=== PATIENT | male | born 1945 ===

== ENCOUNTER 2019-05-24 16:22 | Emergency (ER) | payer MEDICARE, BC, MEDICAID, SELFPAY ==
[2019-05-24] VITALS (8 sets, daily range): BP systolic 100–124; BP diastolic 59–88; PULSE 70–91; RESP 18–30; TEMP 37.1; O2SAT 94–99; BMI 23.7
--- NOTE | 2019-05-24 16:29 | ED_ITS ---
Entered by Karen Holly, acting as scribe for Documented by User: Sunday Hanks DO 05/24/19 16:35 HPI - Altered Mental Status General: Chief Complaint: Altered Mental Status Stated Complaint: DECREASED MENTAL STATUS Time Seen by Provider: 05/24/19 16:28 History of Present Illness: HPI narrative: 74 yo male presents with altered mental status. Pt is non verbal at this time. Pt is a assisted resident. Pt fell this morning. Pt is having shortness of breath, his lips are swollen. Pt will follow some commands. Pt doesn't normally wear oxygen but is requiring it at this time. MD complaint: altered mental status Onset (ago): hour(s) Timing confirmed by: other (assisted) Severity: moderate Consistency of symptoms: Getting Worse Review of Systems General: Reports: ROS unobtainable due to mental status PFSH ED PFSH: Statuses (acute, chronic, etc) shown below reflect problem list status as previously entered and may not be historically accurate Medical History Dementia (Acute) Gastroesophageal reflux disease (Acute) Subconjunctival hemorrhage (Acute) Social History Smoking and tobacco status: unknown if ever smoked Physical Exam Const: COMMON NORMALS: apparent distress, negative for oriented x3 and negative for alert EXAM LIMITATIONS: altered mental status GENERAL APPEARANCE: cooperative (pt followed some commands) ORIENTATION/CONSCIOUSNESS: Yes awake; not oriented to person, not oriented to place and not oriented to time Resp: EFFORT & INSPECTION: Yes tachypneic, Yes respiratory distress and Yes uses accessory muscles Cardio: COMMON NORMALS: regular rate RATE: regular rate RHYTHM: other (paced ) GI: INSPECTION: Yes normal to inspection Neuro: COMMON NORMALS: negative for oriented x3 SENSORIUM/ORIENTATION: No alert, No oriented to person, No oriented to place and No oriented to time Course Vital Signs: Vital signs: Vital Signs Temperature 98.7 F 05/24/19 16:24 Pulse Rate 78 05/24/19 22:00 Respiratory Rate 18 05/24/19 22:00 Blood Pressure 102/60 05/24/19 22:00 Pulse Oximetry 99 05/24/19 22:00 MDM - Altered Mental Status Lab Data: Labs: Lab Results 05/24/19 05/24/19 05/24/19 Range/Units 16:55 17:05 17:05 WBC 11.4 H (4.0-10.0) 10^3/ uL RBC 3.52 L (4.1-5.3) 10^6/u L Hgb 11.0 L (11.7-16.6) g/dL Hct 36.1 L (42.0-52.0) % MCV 102.6 H (80-94) fL MCH 31.3 (28.0-34.0) pg MCHC 30.5 (30.0-36.0) g/dL RDW 12.1 (12.1-15.1) % Plt Count 207 (130-400) 10^3/c mm MPV 10.7 H (7.4-10.4) fL Neut % (Auto) 88.2 % Lymph % (Auto) 3.5 % Turner % (Auto) 7.8 % Eos % (Auto) 0.0 % Baso % (Auto) 0.1 % Neut # (Auto) 10.1 H (1.8-7.7) 10^3/u L Lymph # (Auto) 0.4 L (0.8-4.8) 10^3/u L Turner # (Auto) 0.9 (0.2-0.9) 10^3/u L Eos # (Auto) 0.0 (0.0-0.8) 10^3/u L Baso # (Auto) 0.0 (0.0-0.1) 10^3/u L Nucleated RBC % (a uto) 0 % Nucleated RBCs # 0.0 /100WBC Sodium 147 H (136-145) mmol/L Potassium 3.5 (3.5-5.1) mmol/L Chloride 113 H (98-107) mmol/L Carbon Dioxide 22 (22-29) mmol/L Anion Gap 15.5 (5-19) BUN 32 H (8-23) mg/dL Creatinine 1.0 (0.7-1.2) mg/dL Glucose 114 H (74-106) mg/dL POC Glucose 113 (70-110) mg/dL Lactate (0.5-2.2) mmol/L Calcium 8.3 L (8.5-10.5) mg/dL Total Bilirubin 0.7 (0.15-1.2) mg/dL AST 14 (0-40) U/L ALT 13 (0-41) U/L Alkaline Phosphata se 68 (40-130) IU/L Troponin T Baselin e (0-15) ng/mL Troponin T 120 Min [place] (0-15) ng/mL Delta Troponin T (0-10) ABS# Total Protein 5.6 L (6.6-8.7) g/dL Albumin 2.4 L (3.5-5.2) g/dL Globulin 3.2 (1.3-4.6) g/dL Urine Color (Yellow) Urine Appearance (CLEAR) Urine pH (5-7) Ur Specific Gravit y (1.005-1.030) Urine Protein (Negative) Urine Glucose (UA) (Normal) Urine Ketones (Negative) Urine Occult Blood (Negative) Urine Nitrate (Negative) Urine Bilirubin (NEGATIVE) Urine Urobilinogen (Negative) mg/dL Ur Leukocyte Lisa ase (Negative) Urine RBC (0-2) /hpf Urine WBC (0-5) /hpf Ur Squamous Epith Cells (0-5) Urine Bacteria (NONE) Hyaline Casts Urine Mucus 05/24/19 05/24/19 05/24/19 Range/Units 17:05 17:05 17:17 WBC (4.0-10.0) 10^3/ uL RBC (4.1-5.3) 10^6/u L Hgb (11.7-16.6) g/dL Hct (42.0-52.0) % MCV (80-94) fL MCH (28.0-34.0) pg MCHC (30.0-36.0) g/dL RDW (12.1-15.1) % Plt Count (130-400) 10^3/c mm MPV (7.4-10.4) fL Neut % (Auto) % Lymph % (Auto) % Turner % (Auto) % Eos % (Auto) % Baso % (Auto) % Neut # (Auto) (1.8-7.7) 10^3/u L Lymph # (Auto) (0.8-4.8) 10^3/u L Turner # (Auto) (0.2-0.9) 10^3/u L Eos # (Auto) (0.0-0.8) 10^3/u L Baso # (Auto) (0.0-0.1) 10^3/u L Nucleated RBC % (a uto) % Nucleated RBCs # /100WBC Sodium (136-145) mmol/L Potassium (3.5-5.1) mmol/L Chloride (98-107) mmol/L Carbon Dioxide (22-29) mmol/L Anion Gap (5-19) BUN (8-23) mg/dL Creatinine (0.7-1.2) mg/dL Glucose (74-106) mg/dL POC Glucose (70-110) mg/dL Lactate 1.2 (0.5-2.2) mmol/L Calcium (8.5-10.5) mg/dL Total Bilirubin (0.15-1.2) mg/dL AST (0-40) U/L ALT (0-41) U/L Alkaline Phosphata se (40-130) IU/L Troponin T Baselin e 31 H (0-15) ng/mL Troponin T 120 Min [place] (0-15) ng/mL Delta Troponin T (0-10) ABS# Total Protein (6.6-8.7) g/dL Albumin (3.5-5.2) g/dL Globulin (1.3-4.6) g/dL Urine Color Yellow (Yellow) Urine Appearance Clear (CLEAR) Urine pH 5 (5-7) Ur Specific Gravit y 1.025 (1.005-1.030) Urine Protein Trace (Negative) Urine Glucose (UA) Norm (Normal) Urine Ketones Negative (Negative) Urine Occult Blood Neg (Negative) Urine Nitrate Negative (Negative) Urine Bilirubin Neg (NEGATIVE) Urine Urobilinogen 1 H (Negative) mg/dL Ur Leukocyte Lisa ase Negative (Negative) Urine RBC 0-4 H (0-2) /hpf Urine WBC 0-4 H (0-5) /hpf Ur Squamous Epith Cells 0-4 H (0-5) Urine Bacteria Trace (NONE) Hyaline Casts 0-4 H Urine Mucus 1+ 01/30/20 Range/Units 19:04 WBC (4.0-10.0) 10^3/ uL RBC (4.1-5.3) 10^6/u L Hgb (11.7-16.6) g/dL Hct (42.0-52.0) % MCV (80-94) fL MCH (28.0-34.0) pg MCHC (30.0-36.0) g/dL RDW (12.1-15.1) % Plt Count (130-400) 10^3/c mm MPV (7.4-10.4) fL Neut % (Auto) % Lymph % (Auto) % Turner % (Auto) % Eos % (Auto) % Baso % (Auto) % Neut # (Auto) (1.8-7.7) 10^3/u L Lymph # (Auto) (0.8-4.8) 10^3/u L Turner # (Auto) (0.2-0.9) 10^3/u L Eos # (Auto) (0.0-0.8) 10^3/u L Baso # (Auto) (0.0-0.1) 10^3/u L Nucleated RBC % (a uto) % Nucleated RBCs # /100WBC Sodium (136-145) mmol/L Potassium (3.5-5.1) mmol/L Chloride (98-107) mmol/L Carbon Dioxide (22-29) mmol/L Anion Gap (5-19) BUN (8-23) mg/dL Creatinine (0.7-1.2) mg/dL Glucose (74-106) mg/dL POC Glucose (70-110) mg/dL Lactate (0.5-2.2) mmol/L Calcium (8.5-10.5) mg/dL Total Bilirubin (0.15-1.2) mg/dL AST (0-40) U/L ALT (0-41) U/L Alkaline Phosphata se (40-130) IU/L Troponin T Baselin e (0-15) ng/mL Troponin T 120 Min [place] 31.21 H (0-15) ng/mL Delta Troponin T 0.21 (0-10) ABS# Total Protein (6.6-8.7) g/dL Albumin (3.5-5.2) g/dL Globulin (1.3-4.6) g/dL Urine Color (Yellow) Urine Appearance (CLEAR) Urine pH (5-7) Ur Specific Gravit y (1.005-1.030) Urine Protein (Negative) Urine Glucose (UA) (Normal) Urine Ketones (Negative) Urine Occult Blood (Negative) Urine Nitrate (Negative) Urine Bilirubin (NEGATIVE) Urine Urobilinogen (Negative) mg/dL Ur Leukocyte Lisa ase (Negative) Urine RBC (0-2) /hpf Urine WBC (0-5) /hpf Ur Squamous Epith Cells (0-5) Urine Bacteria (NONE) Hyaline Casts Urine Mucus Discharge Plan Discharge Patient Disposition: [facility] Clinical Impression: Dehydration with hypernatremia Altered mental status Qualifiers: Altered mental status type: unspecified Qualified Code(s): R41.82 - Altered mental status, unspecified Sinusitis Qualifiers: Sinusitis location: maxillary Chronicity: acute Recurrence: not specified as recurrent Qualified Code(s): J01.00 - Acute maxillary sinusitis, unspecified Condition: Stable Prescriptions: New Augmentin 875-125 mg tablet 1 tab PO BID 10 Days Qty: 20 RF: 0 No Action atorvastatin 80 mg Tablet 80 mg PO DAILY RF: 0 carvedilol 25 mg Tablet 25 mg PO BID RF: 0 Miralax 17 gram Powder In Packet 17 g PO DAILY RF: 0 Celexa 10 mg Tablet 10 mg PO DAILY RF: 0 Aricept 10 mg Tablet 10 mg PO BEDTIME RF: 0 Plavix 75 mg Tablet 75 mg PO DAILY RF: 0 spironolactone 25 mg Tablet 25 mg PO DAILY RF: 0 famotidine 20 mg Tablet 20 mg PO BID RF: 0 Milk of Magnesia 400 mg/5 mL Suspension 30 ml PO DAILY PRN (Reason: Constipation) RF: 0 meclizine 25 mg Tablet 25 mg PO Q6H PRN (Reason: Dizziness) RF: 0 erythromycin 5 mg/gram (0.5 %) Ointment 1 applic OPHTHALMIC (EYE) DAILY RF: 0 Colace 100 mg Capsule 100 mg PO BID RF: 0 aspirin 81 mg Tablet,Chewable 81 mg PO DAILY RF: 0 montelukast 10 mg Tablet 10 mg PO BEDTIME RF: 0 lisinopril 5 mg Tablet 2.5 mg PO DAILY RF: 0 Ventolin HFA 90 mcg/actuation Hfa Aerosol Inhaler 2 puff INHALATION Q6H PRN (Reason: Shortness Of Breath) RF: 0 loratadine 10 mg Tablet 10 mg PO DAILY RF: 0 memantine 5 mg Tablet 5 mg PO QAM RF: 0 Tylenol 325 mg Capsule 650 mg PO TID PRN (Reason: Pain) RF: 0 Discharge Orders: Discharge Order (Routine); Ordered 05/24/19 Ordered By: Gina Lopez Referrals: [facility] [Other] Zachariah Newsome MD, [facility] [place] [Emergency Department] - 1-3 days Discharge Diet: Advance as tolerated Discharge Activity: Increase activity as tolerated Patient Instructions: Dehydration - Adult, Sinusitis - Acute Activity Restrictions/Additional Instructions: Please return to the ER immediately for any of the signs or symptoms listed on your discharge instruction sheets, worsening/changing of your symptoms, you are not getting better as quickly as expected, or for ANY other cause or concerns. Discharge Date/Time: 05/24/19 22:43 Sign Out Sign Out Data: Patient Sign Out occurred on 05/24/19 at 18:09. Patient's care was discussed, and care was transferred from to Gina Lopez. Coding Level of Care Code ED Equipment Cleaner And Tester for Chg Fwd Exam Problem Focused Documented by User: Gina Lopez 05/24/19 23:28 HPI - Altered Mental Status General: Chief Complaint: Altered Mental Status Stated Complaint: DECREASED MENTAL STATUS Time Seen by Provider: 05/24/19 16:28 [facility] ED PFSH: Statuses (acute, chronic, etc) shown below reflect problem list status as previously entered and may not be historically accurate Medical History Dementia (Acute) Gastroesophageal reflux disease (Acute) Subconjunctival hemorrhage (Acute) Social History Smoking and tobacco status: unknown if ever smoked Course Vital Signs: Vital signs: Vital Signs Temperature 98.7 F 05/24/19 16:24 Pulse Rate 78 05/24/19 22:00 Respiratory Rate 18 05/24/19 22:00 Blood Pressure 102/60 05/24/19 22:00 Pulse Oximetry 99 05/24/19 22:00 MDM - Altered Mental Status MDM Narrative: Medical decision making narrative: Case inherited by me at change of shift from Dr. Sanchez. Please see his portion of this note for his history, physical exam and medical decision making notes. Patient to me will indicate where he hurts and pointed towards nose. CT of the head shows a sinusitis which is likely causing his discomfort. He does appear mildly dehydrated and hypernatremic but I have given him 2 L of normal saline here which should help with that. I reviewed the case with Dr. Newsome he is agreeable to letting the patient go back to the assisted on antibiotics for his sinusitis and they will have the assisted try to encourage hydration there. I did review the case with the patient's son Marlo Allan and he states he would like the patient to go back to the assisted as he thinks he will be more comfortable there. He does agree to have him return here to the ER if his symptoms change or worsen at all. I have informed the patient's family and Dr. Newsome is aware that something else may be going on but with the patient's ability to communicate at this time sinusitis with dehydration is my best working diagnosis but they do agree to return here if his symptoms worse. Lab Data: Labs: Lab Results 05/24/19 05/24/19 05/24/19 Range/Units 16:55 17:05 17:05 WBC 11.4 H (4.0-10.0) 10^3/ uL RBC 3.52 L (4.1-5.3) 10^6/u L Hgb 11.0 L (11.7-16.6) g/dL Hct 36.1 L (42.0-52.0) % MCV 102.6 H (80-94) fL MCH 31.3 (28.0-34.0) pg MCHC 30.5 (30.0-36.0) g/dL RDW 12.1 (12.1-15.1) % Plt Count 207 (130-400) 10^3/c mm MPV 10.7 H (7.4-10.4) fL Neut % (Auto) 88.2 % Lymph % (Auto) 3.5 % Turner % (Auto) 7.8 % Eos % (Auto) 0.0 % Baso % (Auto) 0.1 % Neut # (Auto) 10.1 H (1.8-7.7) 10^3/u L Lymph # (Auto) 0.4 L (0.8-4.8) 10^3/u L Turner # (Auto) 0.9 (0.2-0.9) 10^3/u L Eos # (Auto) 0.0 (0.0-0.8) 10^3/u L Baso # (Auto) 0.0 (0.0-0.1) 10^3/u L Nucleated RBC % (a uto) 0 % Nucleated RBCs # 0.0 /100WBC Sodium 147 H (136-145) mmol/L Potassium 3.5 (3.5-5.1) mmol/L Chloride 113 H (98-107) mmol/L Carbon Dioxide 22 (22-29) mmol/L Anion Gap 15.5 (5-19) BUN 32 H (8-23) mg/dL Creatinine 1.0 (0.7-1.2) mg/dL Glucose 114 H (74-106) mg/dL POC Glucose 113 (70-110) mg/dL Lactate (0.5-2.2) mmol/L Calcium 8.3 L (8.5-10.5) mg/dL Total Bilirubin 0.7 (0.15-1.2) mg/dL AST 14 (0-40) U/L ALT 13 (0-41) U/L Alkaline Phosphata se 68 (40-130) IU/L Troponin T Baselin e (0-15) ng/mL Troponin T 120 Min [place] (0-15) ng/mL Delta Troponin T (0-10) ABS# Total Protein 5.6 L (6.6-8.7) g/dL Albumin 2.4 L (3.5-5.2) g/dL Globulin 3.2 (1.3-4.6) g/dL Urine Color (Yellow) Urine Appearance (CLEAR) Urine pH (5-7) Ur Specific Gravit y (1.005-1.030) Urine Protein (Negative) Urine Glucose (UA) (Normal) Urine Ketones (Negative) Urine Occult Blood (Negative) Urine Nitrate (Negative) Urine Bilirubin (NEGATIVE) Urine Urobilinogen (Negative) mg/dL Ur Leukocyte Lisa ase (Negative) Urine RBC (0-2) /hpf Urine WBC (0-5) /hpf Ur Squamous Epith Cells (0-5) Urine Bacteria (NONE) Hyaline Casts Urine Mucus 05/24/19 05/24/19 05/24/19 Range/Units 17:05 17:05 17:17 WBC (4.0-10.0) 10^3/ uL RBC (4.1-5.3) 10^6/u L Hgb (11.7-16.6) g/dL Hct (42.0-52.0) % MCV (80-94) fL MCH (28.0-34.0) pg MCHC (30.0-36.0) g/dL RDW (12.1-15.1) % Plt Count (130-400) 10^3/c mm MPV (7.4-10.4) fL Neut % (Auto) % Lymph % (Auto) % Turner % (Auto) % Eos % (Auto) % Baso % (Auto) % Neut # (Auto) (1.8-7.7) 10^3/u L Lymph # (Auto) (0.8-4.8) 10^3/u L Turner # (Auto) (0.2-0.9) 10^3/u L Eos # (Auto) (0.0-0.8) 10^3/u L Baso # (Auto) (0.0-0.1) 10^3/u L Nucleated RBC % (a uto) % Nucleated RBCs # /100WBC Sodium (136-145) mmol/L Potassium (3.5-5.1) mmol/L Chloride (98-107) mmol/L Carbon Dioxide (22-29) mmol/L Anion Gap (5-19) BUN (8-23) mg/dL Creatinine (0.7-1.2) mg/dL Glucose (74-106) mg/dL POC Glucose (70-110) mg/dL Lactate 1.2 (0.5-2.2) mmol/L Calcium (8.5-10.5) mg/dL Total Bilirubin (0.15-1.2) mg/dL AST (0-40) U/L ALT (0-41) U/L Alkaline Phosphata se (40-130) IU/L Troponin T Baselin e 31 H (0-15) ng/mL Troponin T 120 Min [place] (0-15) ng/mL Delta Troponin T (0-10) ABS# Total Protein (6.6-8.7) g/dL Albumin (3.5-5.2) g/dL Globulin (1.3-4.6) g/dL Urine Color Yellow (Yellow) Urine Appearance Clear (CLEAR) Urine pH 5 (5-7) Ur Specific Gravit y 1.025 (1.005-1.030) Urine Protein Trace (Negative) Urine Glucose (UA) Norm (Normal) Urine Ketones Negative (Negative) Urine Occult Blood Neg (Negative) Urine Nitrate Negative (Negative) Urine Bilirubin Neg (NEGATIVE) Urine Urobilinogen 1 H (Negative) mg/dL Ur Leukocyte Lisa ase Negative (Negative) Urine RBC 0-4 H (0-2) /hpf Urine WBC 0-4 H (0-5) /hpf Ur Squamous Epith Cells 0-4 H (0-5) Urine Bacteria Trace (NONE) Hyaline Casts 0-4 H Urine Mucus 1+ 01/30/20 Range/Units 19:04 WBC (4.0-10.0) 10^3/ uL RBC (4.1-5.3) 10^6/u L Hgb (11.7-16.6) g/dL Hct (42.0-52.0) % MCV (80-94) fL MCH (28.0-34.0) pg MCHC (30.0-36.0) g/dL RDW (12.1-15.1) % Plt Count (130-400) 10^3/c mm MPV (7.4-10.4) fL Neut % (Auto) % Lymph % (Auto) % Turner % (Auto) % Eos % (Auto) % Baso % (Auto) % Neut # (Auto) (1.8-7.7) 10^3/u L Lymph # (Auto) (0.8-4.8) 10^3/u L Turner # (Auto) (0.2-0.9) 10^3/u L Eos # (Auto) (0.0-0.8) 10^3/u L Baso # (Auto) (0.0-0.1) 10^3/u L Nucleated RBC % (a uto) % Nucleated RBCs # /100WBC Sodium (136-145) mmol/L Potassium (3.5-5.1) mmol/L Chloride (98-107) mmol/L Carbon Dioxide (22-29) mmol/L Anion Gap (5-19) BUN (8-23) mg/dL Creatinine (0.7-1.2) mg/dL Glucose (74-106) mg/dL POC Glucose (70-110) mg/dL Lactate (0.5-2.2) mmol/L Calcium (8.5-10.5) mg/dL Total Bilirubin (0.15-1.2) mg/dL AST (0-40) U/L ALT (0-41) U/L Alkaline Phosphata se (40-130) IU/L Troponin T Baselin e (0-15) ng/mL Troponin T 120 Min [place] 31.21 H (0-15) ng/mL Delta Troponin T 0.21 (0-10) ABS# Total Protein (6.6-8.7) g/dL Albumin (3.5-5.2) g/dL Globulin (1.3-4.6) g/dL Urine Color (Yellow) Urine Appearance (CLEAR) Urine pH (5-7) Ur Specific Gravit y (1.005-1.030) Urine Protein (Negative) Urine Glucose (UA) (Normal) Urine Ketones (Negative) Urine Occult Blood (Negative) Urine Nitrate (Negative) Urine Bilirubin (NEGATIVE) Urine Urobilinogen (Negative) mg/dL Ur Leukocyte Lisa ase (Negative) Urine RBC (0-2) /hpf Urine WBC (0-5) /hpf Ur Squamous Epith Cells (0-5) Urine Bacteria (NONE) Hyaline Casts Urine Mucus Imaging Data^: CXR: My impression: No acute cardiopulmonary findings. CT Head: Radiologist's impression: [address] [place] [address] CT Scan Report Signed Patient: Michael Allan Unit #: [id number] : 1945 Age/Sex: 74 / M ADM Date: 05/24/19 Loc: ER Room/Bed: Attending Dr: Ordering Provider/Ordering MD: Sunday Hanks DO Date of Service: 05/24/19 Procedure(s): CT head wo con* [id number] Accession Number(s): [id number] Report Number: [id number] PROCEDURE INFORMATION: Exam: CT Head Without Contrast Exam date and time: 05/24/2019 5:17 PM Age: 74 years old Clinical indication: Altered mental status/memory loss; Patient HX: Dementia; Additional info: AMS TECHNIQUE: Imaging protocol: Computed tomography of the head without contrast. Total DLP: 846.13 mGy-cm Radiation optimization: All CT scans at this facility use at least one of these dose optimization techniques: automated exposure control; mA and/or kV adjustment per patient size (includes targeted exams where dose is matched to clinical indication); or iterative reconstruction. COMPARISON: CT head wo con* [id number] 03/20/2019 2:06 PM FINDINGS: Brain: No acute intracranial mass or bleed. Mild generalized cerebral atrophy. Ventricles: Normal. No ventriculomegaly. Bones/joints: Unremarkable. No acute fracture. Sinuses: Left maxillary sinus mucoperiosteal thickening with some dependent retained secretions/fluid. Mastoid air cells: Visualized mastoid air cells are well aerated. Soft tissues: Unremarkable. CT/CT head con* [id number] IMPRESSION: 1) mild generalized cerebral atrophy, unchanged. 2) acute to subacute left maxillary sinusitis. Radiation Dose CTDIVOL = (mGy): DLP = 846.13 (mGy-cm) Dictated By: Ric Holliday MD Signed By: Ric Holliday MD Signed Date/Time: 05/24/191824 DD/ 23 EKG Data^: EKG 1: Attestation: I personally reviewed and interpreted this EKG as follows: EKG interpretation date: 05/24/19 EKG interpretation time: 18:32 Interpretation: Atrial fibrillation with a ventricular rate of 77 beats a minute, frequent PVCs, baseline artifact, right bundle branch block, nonspecific ST-T wave changes. Discharge Plan Discharge Patient Disposition: [facility] Clinical Impression: Dehydration with hypernatremia Altered mental status Qualifiers: Altered mental status type: unspecified Qualified Code(s): R41.82 - Altered mental status, unspecified Sinusitis Qualifiers: Sinusitis location: maxillary Chronicity: acute Recurrence: not specified as recurrent Qualified Code(s): J01.00 - Acute maxillary sinusitis, unspecified Condition: Stable Prescriptions: New Augmentin 875-125 mg tablet 1 tab PO BID 10 Days Qty: 20 RF: 0 No Action atorvastatin 80 mg Tablet 80 mg PO DAILY RF: 0 carvedilol 25 mg Tablet 25 mg PO BID RF: 0 Miralax 17 gram Powder In Packet 17 g PO DAILY RF: 0 Celexa 10 mg Tablet 10 mg PO DAILY RF: 0 Aricept 10 mg Tablet 10 mg PO BEDTIME RF: 0 Plavix 75 mg Tablet 75 mg PO DAILY RF: 0 spironolactone 25 mg Tablet 25 mg PO DAILY RF: 0 famotidine 20 mg Tablet 20 mg PO BID RF: 0 Milk of Magnesia 400 mg/5 mL Suspension 30 ml PO DAILY PRN (Reason: Constipation) RF: 0 meclizine 25 mg Tablet 25 mg PO Q6H PRN (Reason: Dizziness) RF: 0 erythromycin 5 mg/gram (0.5 %) Ointment 1 applic OPHTHALMIC (EYE) DAILY RF: 0 Colace 100 mg Capsule 100 mg PO BID RF: 0 aspirin 81 mg Tablet,Chewable 81 mg PO DAILY RF: 0 montelukast 10 mg Tablet 10 mg PO BEDTIME RF: 0 lisinopril 5 mg Tablet 2.5 mg PO DAILY RF: 0 Ventolin HFA 90 mcg/actuation Hfa Aerosol Inhaler 2 puff INHALATION Q6H PRN (Reason: Shortness Of Breath) RF: 0 loratadine 10 mg Tablet 10 mg PO DAILY RF: 0 memantine 5 mg Tablet 5 mg PO QAM RF: 0 Tylenol 325 mg Capsule 650 mg PO TID PRN (Reason: Pain) RF: 0 Discharge Orders: Discharge Order (Routine); Ordered 05/24/19 Ordered By: Gina Lopez Referrals: [facility] [Other] Zachariah Newsome MD, [facility] [place] [Emergency Department] - 1-3 days Discharge Diet: Advance as tolerated Discharge Activity: Increase activity as tolerated Patient Instructions: Dehydration - Adult, Sinusitis - Acute Activity Restrictions/Additional Instructions: Please return to the ER immediately for any of the signs or symptoms listed on your discharge instruction sheets, worsening/changing of your symptoms, you are not getting better as quickly as expected, or for ANY other cause or concerns. Discharge Date/Time: 05/24/19 22:43 Sign Out Sign Out Data: Patient Sign Out occurred on 05/24/19 at 18:09. Patient's care was discussed, and care was transferred from to Gina Lopez. Coding Level of Care Code ED Equipment Cleaner And Tester for Natanael Fwd Exam Problem Focused
--- NOTE | 2019-05-24 16:36 | CTR_ITS ---
PROCEDURE INFORMATION: Exam: CT Head Without Contrast Exam date and time: 05/24/2019 5:17 PM Age: 74 years old Clinical indication: Altered mental status/memory loss; Patient HX: Dementia; Additional info: AMS TECHNIQUE: Imaging protocol: Computed tomography of the head without contrast. Total DLP: 846.13 mGy-cm Radiation optimization: All CT scans at this facility use at least one of these dose optimization techniques: automated exposure control; mA and/or kV adjustment per patient size (includes targeted exams where dose is matched to clinical indication); or iterative reconstruction. COMPARISON: CT head wo con* [id number] 03/20/2019 2:06 PM FINDINGS: Brain: No acute intracranial mass or bleed. Mild generalized cerebral atrophy. Ventricles: Normal. No ventriculomegaly. Bones/joints: Unremarkable. No acute fracture. Sinuses: Left maxillary sinus mucoperiosteal thickening with some dependent retained secretions/fluid. Mastoid air cells: Visualized mastoid air cells are well aerated. Soft tissues: Unremarkable. CT/CT head wo con* [id number] IMPRESSION: 1) mild generalized cerebral atrophy, unchanged. 2) acute to subacute left maxillary sinusitis. Radiation Dose CTDIVOL = (mGy): DLP = 846.13 (mGy-cm)
--- NOTE | 2019-05-24 16:36 | XR_ITS ---
WS: [id number] Portable AP upright chest, 05/24/2019 Clinical Data: AMS Comparison: Portable chest, 03/20/2019 Findings: No nodules, masses or effusions are seen. The heart is enlarged. The pulmonary vascularity is not increased. No pneumonia or pneumothorax is seen. Midline sternotomy sutures are present. There is a permanent pacemaker with the generator overlying the right upper chest. There is a monitor lead on the chest wall. The aortic arch and descending aorta are tortuous. XR/XR chest 1V portable [id number] Impression: 1. Atherosclerosis and permanent pacemaker. 2. Cardiomegaly.
[2019-05-24] MEDS: sodium chloride 0.9% 500 ML IV (16:45)
[2019-05-24 16:59] LABS: Glucose Point of Care 113 mg/dL (70-110)
[2019-05-24 17:24] LABS: Basophils % 0.1 %; Hematocrit 36.1 % (42.0-52.0); Lymphocytes # 0.4 10^3/uL (0.8-4.8); Lymphocytes % 3.5 %; Mean Corpuscular HGB Conc 30.5 g/dL (30.0-36.0); Mean Corpuscular Hemoglobin 31.3 pg (28.0-34.0); Mean Corpuscular Volume 102.6 fL (80-94); Mean Platelet Volume 10.7 fL (7.4-10.4); Monocytes # 0.9 10^3/uL (0.2-0.9); Monocytes % 7.8 %; Neutrophils # 10.1 10^3/uL (1.8-7.7); Neutrophils % 88.2 %; Nucleated Red Blood Cells % 0 %; Platelet Count 207 10^3/cmm (130-400); Red Blood Count 3.52 10^6/uL (4.1-5.3); Red Cell Distribution Width 12.1 % (12.1-15.1); White Blood Count 11.4 10^3/uL (4.0-10.0)
[2019-05-24 17:28] LABS: Add Urine Microscopic? YES; Bilirubin Urine Neg (NEGATIVE); Blood Urine Neg (Negative); Glucose Urine UA Norm (Normal); Ketones Urine Negative (Negative); Leukocyte Esterase Urine Negative (Negative); Nitrate Urine Negative (Negative); Protein Urine Trace (Negative); Specific Gravity, Urine 1.025 (1.005-1.030); Urine Appearance Clear (CLEAR); Urine Color Yellow (Yellow); Urobilinogen Urine 1 mg/dL (Negative); pH Urine 5 (5-7)
[2019-05-24 17:34] LABS: Add Urine Culture? No; Bacteria Urine TRACE; Hyaline Casts Urine 0-4; Mucus Urine 1+; RBC Urine 0-4 /hpf (0-2); Squamous Epithelial Cell Urine 0-4 (0-5); WBC Urine 0-4 /hpf (0-5)
[2019-05-24 17:38] LABS: Alanine Aminotransferase 13 U/L (0-41); Albumin Level 2.4 g/dL (3.5-5.2); Alkaline Phosphatase 68 IU/L (40-130); Anion Gap 15.5 (5-19); Aspartate Amino Transferase 14 U/L (0-40); Blood Urea Nitrogen 32 mg/dL (8-23); Calcium 8.3 mg/dL (8.5-10.5); Carbon Dioxide 22 mmol/L (22-29); Chloride 113 mmol/L (98-107); Globulin 3.2 g/dL (1.3-4.6); Glucose 114 mg/dL (74-106); Potassium 3.5 mmol/L (3.5-5.1); Sodium 147 mmol/L (136-145); Total Bilirubin 0.7 mg/dL (0.15-1.2); Total Protein 5.6 g/dL (6.6-8.7)
[2019-05-24 17:39] LABS: Lactate (Lactic Acid level) 1.2 mmol/L (0.5-2.2)
--- NOTE | 2019-05-24 18:15 | ECG_ITS ---
Measurements Intervals [place] Rate: 77 P: [place]: 0 QRS: 13 QRSD: 149 T: 27 QT: 437 QTc: 498 Atrial fibrillation ELECTRONIC VENTRICULAR PACEMAKER -- CONTOUR ANALYSIS BASED ON INTRINSIC RHYTHM RIGHT BUNDLE BRANCH BLOCK [120+ ms QRS DURATION, UPRIGHT V1, 40+ ms S IN I/aVL/V4/V5/V6] Compared to ECG 03/20/2019 14:50:30 Right bundle-branch block now present Atrial fibrillation still present Ventricular premature complex(es) no longer present Electronically Signed On 05-25-2019 15:53:00 [employer]W OFFBEAR[employer] by Ahsan Rojo M.D. [email or web address]
[2019-05-24] MEDS: sodium chloride 0.9% 1,000 ML 999 ML IV ×2 (18:33→19:32)
[2019-05-24 18:38] LABS: Troponin(5th) Baseline 31 ng/mL (0-15)
[2019-05-24 19:25] LABS: Troponin 5 2HR 31.21 ng/mL (0-15); Troponin 5 2HR Delta 0.21 ABS# (0-10)
[2019-05-24] MEDS: piperacillin-tazobactam 3.375 GM in sodium chloride 0.9% (plus) 50 ML IV (19:32)
--- NOTE | 2019-05-24 19:33 | PC.NURSE ---
Introduced self to patient and initiated vital signs. Pt is not verbal but responds to requests to lift his arms. Asked patient if he was in any pain and he nodded his head 'NO'. Reassured patient of needs and will continue to monitor.
[2019-05-24] MEDS: calcium gluconate 0.1 gm/mL 10% SDV 10mL 1 GM IVP (19:52)
--- NOTE | 2019-05-24 22:30 | PC.NURSE ---
EMS assuming care of patient.
== END 2019-05-24 22:43 | disposition skilled nursing facility (03) ==
PROVIDERS: Family Medicine; Emergency Provider Emergency Medicine
DX: R41.82 Altered mental status, unspecified (principal); E87.0 Hyperosmolality and hypernatremia; E86.0 Dehydration; J01.00 Acute maxillary sinusitis, unspecified; Z79.82 Long term (current) use of aspirin; Z79.02 Long term (current) use of antithrombotics/antiplatelets; F03.90 Unspecified dementia, unspecified severity, without behavioral disturbance, psychotic disturbance, mood disturbance, and anxiety; K21.9 Gastro-esophageal reflux disease without esophagitis
CPT/HCPCS: 36415; 36416; 70450; 71045; 80053; 81001; 82962; 83605; 84484; 85025; 87040; 87205; 93005; 96360; 96361; 96365; 96374; 99284; A9270; J0610; J2543; J7030; J7040